=== PATIENT | female | born 1960 | race Two or more races ===

== ENCOUNTER 2024-02-06 06:45 | Day surgery (SDC) | payer MEDICAID, SELFPAY ==
[2024-02-05 15:06] VITALS: BMI 20.7
[2024-02-06] VITALS (9 sets, daily range): BP systolic 87–175; BP diastolic 48–78; PULSE 77–96; RESP 11–22; TEMP 36.2–36.6; O2SAT 98–100; BMI 19.1
[2024-02-06] MEDS: DEXTROSE 50%-WATER INJ 50 ML SYRINGE 25 ML IV (07:33)
--- NOTE | 2024-02-06 07:35 | SUR.PREOP ---
pt is blind and unable to sign consent, daughter Nubia Boss is the pt decision maker and is in the process of filling next of kin. social service is involved with helping the daughter and the patient through these processes and changes. .
[2024-02-06] MEDS: MIDAZOLAM INJ 1 MG/ML VIAL 2 ML (ASD USE ONLY) 2 MG IV (08:07)
[2024-02-06] MEDS: fentaNYL CIT INJ 50 mCg/ML AMP 2ML (ASD USE ONLY) IV (08:07)
[2024-02-06] MEDS: DiphenhydrAMINE INJ 50 MG/ML VIAL 25 MG IV (08:07)
--- NOTE | 2024-02-06 09:18 | SUR.PHASEII ---
d/c instructions review with pt and dtr. dtr educated on diabetic and s/s of hyper and hypoglycemia. Also discussed pt's irregular heart rythms that pt has been having after sedations. dtr stated that pt already seen by glove brusher in [place].
== END 2024-02-06 09:12 | disposition home or self-care (01) ==
PROVIDERS: PCP Nurse Practitioner Family; Referring Provider Surgery; Visit Provider Surgery
PROC: 0DBE8ZX Excision of Large Intestine, Via Natural or Artificial Opening Endoscopic, Diagnostic (ICD-10-PCS; CPT 45380; principal; 2024-02-06 08:30)
DX: Z12.11 Encounter for screening for malignant neoplasm of colon (principal); K62.89 Other specified diseases of anus and rectum; K64.1 Second degree hemorrhoids; K64.4 Residual hemorrhoidal skin tags
CPT/HCPCS: 45378; J1200; J2250; J3010

== ENCOUNTER → 2024-08-22 | Outpatient (CLI) | payer MEDICAID, SELFPAY ==
--- NOTE | 2024-08-22 14:00 | XR_ITS ---
Examination: Retroperitoneal ultrasound, complete Technique: Multiple high resolution grayscale images of the retroperitoneum obtained, including kidneys and bladder. Exam date and time: 08/22/2024 at 1353 hours INDICATIONS: Nephrotic syndrome diagnosis FINDINGS: Right kidney 11.8 cm renal cortex 2.2 cm Mild hydronephrosis Left kidney 11.3 cm cortex 2.3 cm Mild hydronephrosis Moderate renal parenchymal scar formation Mild fluid surrounding the kidneys No bladder mass Bladder prevoid volume 483 cc IMPRESSION: Mild bilateral hydronephrosis Moderate bilateral renal parenchymal scar formation
== END | disposition home or self-care (01) ==
PROVIDERS: PCP Nurse Practitioner Family; Referring Provider Internal Medicine Nephrology; Visit Provider Internal Medicine Nephrology
DX: N13.30 Unspecified hydronephrosis (principal); E11.22 Type 2 diabetes mellitus with diabetic chronic kidney disease; I12.9 Hypertensive chronic kidney disease with stage 1 through stage 4 chronic kidney disease, or unspecified chronic kidney disease; N04.9 Nephrotic syndrome with unspecified morphologic changes; N28.89 Other specified disorders of kidney and ureter; N18.9 Chronic kidney disease, unspecified
CPT/HCPCS: 76770